=== PATIENT | male | born 1985 | race Two or more races ===

== ENCOUNTER 2022-07-28 16:35 | Emergency (ER) | payer MEDICAID, OTHER ==
[~2022-07-28] VITALS: Ht 180.3 cm; Wt 72.2 kg
[2022-07-28 16:36] VITALS: BP 136/81
== END 2022-07-28 17:17 | disposition left against medical advice (07) ==
LOC: ER 16:35 → EDBD 16:35 → ER 17:17
DX: T50.7X1A Poisoning by analeptics and opioid receptor antagonists, accidental (unintentional), initial encounter (principal); Z53.21 Procedure and treatment not carried out due to patient leaving prior to being seen by health care provider; X58.XXXA Exposure to other specified factors, initial encounter; Y93.89 Activity, other specified; Y92.89 Other specified places as the place of occurrence of the external cause; Y99.8 Other external cause status